=== PATIENT | female | born 1950 | race Caucasian/White ===

== ENCOUNTER → 2023-12-01 17:04 | Outpatient (REF) | payer MEDICARE, SELFPAY | LOC: PAVMRI 17:04 | PROVIDERS: ATTENDING PHYSICIAN Student in an Organized Health Care Education/Training Program; FAMILY PHYSICIAN Family Medicine | DX: S32.010A Wedge compression fracture of first lumbar vertebra, initial encounter for closed fracture (principal); M54.50 Low back pain, unspecified | CPT/HCPCS: 72148 ==

== ENCOUNTER → 2024-01-26 13:04 | Outpatient (REF) | payer MEDICARE, SELFPAY | LOC: RAD 13:04 | PROVIDERS: ATTENDING PHYSICIAN Internal Medicine Critical Care Medicine; FAMILY PHYSICIAN Family Medicine | DX: R91.8 Other nonspecific abnormal finding of lung field (principal) | CPT/HCPCS: 71250 ==

== ENCOUNTER → 2024-06-21 12:57 | Outpatient (REF) | payer MEDICARE, SELFPAY | LOC: RAD 12:57 | PROVIDERS: ATTENDING PHYSICIAN Family Medicine | DX: R20.0 Anesthesia of skin (principal); R20.2 Paresthesia of skin; R09.89 Other specified symptoms and signs involving the circulatory and respiratory systems | CPT/HCPCS: 93922; 93925 ==

== ENCOUNTER → 2024-07-20 12:24 | Outpatient (REF) | payer MEDICARE, SELFPAY | LOC: EMG 12:24 | PROVIDERS: ATTENDING PHYSICIAN Family Medicine | DX: R20.2 Paresthesia of skin (principal); G62.9 Polyneuropathy, unspecified | CPT/HCPCS: 95886; 95911 ==

== ENCOUNTER → 2024-08-27 11:30 | Outpatient (REF) | payer MEDICARE, SELFPAY | LOC: RAD 11:30 | PROVIDERS: ATTENDING PHYSICIAN Internal Medicine Rheumatology; FAMILY PHYSICIAN Family Medicine | DX: M06.00 Rheumatoid arthritis without rheumatoid factor, unspecified site (principal); M19.049 Primary osteoarthritis, unspecified hand | CPT/HCPCS: 73130 ==

== ENCOUNTER → 2025-02-01 13:47 | Outpatient (REF) | payer MEDICARE, SELFPAY | LOC: RAD 13:47 | PROVIDERS: ATTENDING PHYSICIAN Family Medicine; OTHER PHYSICIAN Internal Medicine Hematology & Oncology; OTHER PHYSICIAN Internal Medicine Rheumatology; REFERRING PHYSICIAN Obstetrics & Gynecology | DX: R22.1 Localized swelling, mass and lump, neck (principal) | CPT/HCPCS: 76536 ==

== ENCOUNTER → 2025-02-03 10:56 | Outpatient (REF) | payer MEDICARE, SELFPAY | LOC: HWRAD 10:56 | PROVIDERS: ATTENDING PHYSICIAN Internal Medicine Critical Care Medicine; FAMILY PHYSICIAN Family Medicine; OTHER PHYSICIAN Internal Medicine Hematology & Oncology; OTHER PHYSICIAN Internal Medicine Rheumatology; REFERRING PHYSICIAN Obstetrics & Gynecology | DX: R91.8 Other nonspecific abnormal finding of lung field (principal) | CPT/HCPCS: 71250 ==

== ENCOUNTER → 2025-03-09 14:19 | Outpatient (REF) | payer MEDICARE, SELFPAY | LOC: HWRAD 14:19 | PROVIDERS: ATTENDING PHYSICIAN Internal Medicine Rheumatology; FAMILY PHYSICIAN Family Medicine; REFERRING PHYSICIAN Orthopaedic Surgery | DX: M17.10 Unilateral primary osteoarthritis, unspecified knee (principal); M17.11 Unilateral primary osteoarthritis, right knee; M19.90 Unspecified osteoarthritis, unspecified site; M54.50 Low back pain, unspecified; M79.675 Pain in left toe(s) | CPT/HCPCS: 72110; 73564; 73630 ==

== ENCOUNTER → 2025-05-06 13:42 | Outpatient (REF) | payer MEDICARE, SELFPAY | LOC: PAVMRI 13:42 | PROVIDERS: ATTENDING PHYSICIAN Physician Assistant; FAMILY PHYSICIAN Family Medicine | DX: K86.2 Cyst of pancreas (principal) | CPT/HCPCS: 74183; A9575 ==

== ENCOUNTER → 2025-05-31 07:46 | Outpatient (REF) | payer MEDICARE, SELFPAY | LOC: RAD 07:46 | PROVIDERS: ATTENDING PHYSICIAN Internal Medicine Gastroenterology; FAMILY PHYSICIAN Family Medicine | DX: R10.11 Right upper quadrant pain (principal) | CPT/HCPCS: 78226; A9537 ==

== ENCOUNTER 2025-07-13 09:20 | Emergency (ER) | payer MEDICARE, SELFPAY ==
[2025-07-13 09:24] VITALS: BP 123/89
[2025-07-13 10:51] VITALS: BMI 21.8
--- NOTE | 2025-07-13 12:09 | ED.GENMED ---
History of Present Illness
General
Chief Complaint: Skin Problem
Source: patient
Exam Limitations: none
Time Seen by Provider: 07/13/25 10:31
Nursing documentation reviewed up to this point in time: agreed with
History of Present Illness
History of Present Illness:
75-year-old female with past medical history of CKD, GERD presenting to the emergency department today with concerns of a wound to her right lee. She claims that she sustained a laceration 2 weeks ago went to an urgent care this was Steri-Stripped
she noticed that there is been an ongoing wound to the area since then. Denies any pain or significant worsening redness.
Past History
Past History
ED Past Medical History: Cancer (Breast and skin cancer), GERD, Hypercholesterolemia, Psychiatric (Depression, ) and Other (Numbness, UTI, Pancreatic and Kidney cyst, Uterine Fibroids, Lyme disease, Shingles, Tha Thyroiditis)
ED Past Surgical History: Orthopedic (Tarsal tunnel, Carpal tunnel right) and Other (right breast lumpectomy)
Social History
Tobacco: Non-smoker
Alcohol: Daily (Wine 1 glass)
Personal:
Living: with family
Review of Systems
Review of Systems
Allergies reviewed?: Yes
All Other Systems: ROS reviewed and negative except as documented in HPI and ROS
Phy Exam
Physical Exam
Physical Exam:
GENERAL: Alert , in no apparent distress
EYE: pupils equal and reactive
NECK: Supple, no significant adenopathy.
ENT: o/p clr, mmm.
CARDIAC: Regular rate and rhythm .
LUNGS: Clear breath sounds bilaterally, no acute respiratory distress, no wheezes/rales/rhonchi
ABDOMEN: Soft, without focal tenderness, no r/g, no cvat
NEUROLOGICAL: Alert and oriented, no focal neuro deficits
SKIN: Right anterior lateral lee healing laceration with some area of granulation tissue and a small area of necrotic skin at the edge of the V-shaped laceration no significant redness warmth or tenderness no purulent drainage otherwise warm and
dry, skin intact.
MUSCULOSKELETAL: No edema, well perfused.
PSYCH: Normal and appropriate interaction.
Course
Vital Signs
Initial and Last Documented VS:
Initial Vital Signs
Temp Pulse Resp BP Pulse Ox
98.0 F 96 16 123/89 100
07/13/25 09:24 07/13/25 09:24 07/13/25 09:24 07/13/25 09:24 07/13/25 09:24
Last Documented Vital Signs
Temp Pulse Resp BP Pulse Ox
98.0 F 96 16 123/89 100
07/13/25 09:24 07/13/25 09:24 07/13/25 09:24 07/13/25 09:24 07/13/25 12:09
MDM/Problems Addressed
MDM/Problems Addressed:
75-year-old female presenting to the emergency department today with concerns of a wound to her right lower extremity. Here there is no signs of infection. This appears to be healing at a normal rate. She was advised for proper wound care and
given information for wound care follow-up. Return precautions given.
*Pulse Oximetry
SaO2: 100
Oxygen Mode of Delivery: Room air
Patient hypoxic: no (100)
*Critical Care Note
Total Time (30-74mins, 75-104mins- exclusive of procedures): Not Applicable
ED Attending Note
-
Portions of this chart may have been created with voice recognition software.� Occasional wrong word or��sound alike� substitutions may have occurred due to the inherent limitations of voice recognition software.
Discharge Plan
Departure
Patient Disposition: Home (Routine Discharge)
Date of Disposition: 07/13/25
Time of Disposition: 12:09
Patient with high blood pressure during this ER visit?: No
Condition: Good
Covid-19: Not Applicable
Discharge Problem:
Leg wound, right
Instructions: Wound Care (DC)
Prescriptions:
New
Santyl 250 unit/gram ointment
1 applic topical DAILY PRN (Reason: wound care) Qty: 90 0RF
No Action
bupropion HCl 100 MG tablet sustained-release 12 hr
100 mg PO BID
levothyroxine 50 MCG tablet
50 mcg PO DAILY
acetaminophen 650 mg Tablet Extended Release
650 mg PO Q8H PRN (Reason: pain)
hydroxychloroquine 200 mg Tablet
200 mg PO DAILY
cholecalciferol (vitamin D3) [Vitamin D3] 25 mcg (1,000 unit) Tablet,Chewable
25 mcg PO DAILY
quetiapine 150 mg Tablet
150 mg PO HS
Calcium 600 with Vitamin D3
1 tab PO DAILY
mupirocin 2 % ointment
1 applic intranasal BID Qty: 1 0RF
oxycodone 5 mg tablet
5 mg PO Q6H PRN (Reason: moderate-severe pain) Qty: 30 0RF
Rx Instructions:
1 tab for moderate pain, 2 if severe.
Dx total joint. Ongoing therapy.
dexamethasone 4 mg tablet
4 mg PO BID Qty: 7 0RF
Rx Instructions:
Start night of discharge and take twice daily until finished.
famotidine [Pepcid] 20 mg tablet
20 mg PO HS Qty: 30 0RF
Rx Instructions:
Take nightly while on post-op pain meds.
prochlorperazine maleate [Compazine] 5 mg tablet
5 mg PO TID PRN (Reason: nausea and vomiting) Qty: 20 0RF
Referrals:
Bobo Lr MD [Active, Plastic Surgery] - Follow up in 5-7 days
Luke Griffin DO [Family Provider, Family Practice]
Activity Restrictions/Additional Instructions:
You came to the emergency department today with concerns of ongoing wound to your right leg. Please use the prescribed medication and follow-up closely with the wound care doctor. Return for any worsening, new or concerning symptoms.
Interventions
Interventions:
*Risk Screen - Suicide Last Done: 07/13/25 10:47
*General Assessment Last Done: 07/13/25 10:47
*Neglect/Abuse Screening Last Done: 07/13/25 10:47
*ED- Fall Risk Assessment Last Done: 07/13/25 10:47
*ED COVID-19 Vaccine History Last Done: 07/13/25 10:47
*Nursing Disposition Last Done: 07/13/25 12:25
ED-Skin Assessment Last Done: 07/13/25 10:47
Discharge Date and Time
Discharge Date/Time: 07/13/25 12:44
Print Language: VIETNAMESE
== END 2025-07-13 12:44 | disposition home or self-care (01) ==
LOC: EMR 09:20
PROVIDERS: EMERGENCY PHYSICIAN Emergency Medicine; FAMILY PHYSICIAN Family Medicine
DX: S81.801A Unspecified open wound, right lower leg, initial encounter (principal); X58.XXXA Exposure to other specified factors, initial encounter; N18.9 Chronic kidney disease, unspecified; E78.00 Pure hypercholesterolemia, unspecified; Z85.828 Personal history of other malignant neoplasm of skin; Z85.3 Personal history of malignant neoplasm of breast
CPT/HCPCS: 99282

== ENCOUNTER → 2025-07-22 07:54 | Outpatient (REF) | payer MEDICARE, SELFPAY | LOC: WOUND 07:54 | PROVIDERS: ATTENDING PHYSICIAN Surgery; FAMILY PHYSICIAN Family Medicine | DX: L97.212 Non-pressure chronic ulcer of right calf with fat layer exposed (principal) | CPT/HCPCS: 99203 ==

== ENCOUNTER → 2025-07-29 10:06 | Outpatient (REF) | payer MEDICARE, SELFPAY | LOC: WOUND 10:06 | PROVIDERS: ATTENDING PHYSICIAN Surgery; FAMILY PHYSICIAN Family Medicine | DX: L97.212 Non-pressure chronic ulcer of right calf with fat layer exposed (principal) | CPT/HCPCS: 97597 ==

== ENCOUNTER → 2025-08-05 09:13 | Outpatient (REF) | payer MEDICARE, SELFPAY | LOC: WOUND 09:13 | PROVIDERS: ATTENDING PHYSICIAN Surgery; FAMILY PHYSICIAN Family Medicine | DX: L97.212 Non-pressure chronic ulcer of right calf with fat layer exposed (principal) | CPT/HCPCS: 11042 ==

== ENCOUNTER 2025-08-09 09:45 | Outpatient (REF) | payer MEDICARE, SELFPAY | END 2025-08-09 23:59 | disposition home or self-care (01) | LOC: WOUND 09:45 | PROVIDERS: ATTENDING PHYSICIAN Surgery; FAMILY PHYSICIAN Family Medicine | DX: L97.212 Non-pressure chronic ulcer of right calf with fat layer exposed (principal); L97.221 Non-pressure chronic ulcer of left calf limited to breakdown of skin | CPT/HCPCS: 11042; 99213 ==

== ENCOUNTER → 2025-08-16 10:13 | Outpatient (REF) | payer MEDICARE, SELFPAY | LOC: WOUND 10:13 | PROVIDERS: ATTENDING PHYSICIAN Surgery; FAMILY PHYSICIAN Family Medicine | DX: L97.212 Non-pressure chronic ulcer of right calf with fat layer exposed (principal); L97.221 Non-pressure chronic ulcer of left calf limited to breakdown of skin | CPT/HCPCS: 11042 ==

== ENCOUNTER → 2025-08-23 10:07 | Outpatient (REF) | payer MEDICARE, SELFPAY | LOC: WOUND 10:07 | PROVIDERS: ATTENDING PHYSICIAN Surgery; FAMILY PHYSICIAN Family Medicine | DX: L97.212 Non-pressure chronic ulcer of right calf with fat layer exposed (principal); L97.221 Non-pressure chronic ulcer of left calf limited to breakdown of skin | CPT/HCPCS: 11042 ==

== ENCOUNTER → 2025-08-30 13:46 | Outpatient (REF) | payer MEDICARE, SELFPAY | LOC: WOUND 13:46 | PROVIDERS: ATTENDING PHYSICIAN Surgery; FAMILY PHYSICIAN Family Medicine | DX: L97.212 Non-pressure chronic ulcer of right calf with fat layer exposed (principal); L97.221 Non-pressure chronic ulcer of left calf limited to breakdown of skin | CPT/HCPCS: 11042 ==

== ENCOUNTER 2025-09-07 11:58 | Emergency (ER) | payer MEDICARE, SELFPAY ==
--- NOTE | 2025-09-07 12:54 | ED.GENMED ---
History of Present Illness
<Rafita Carnes MD - Last Filed: 09/08/25 09:47>
General
Chief Complaint: Crisis Evaluation
Time Seen by Provider: 09/07/25 12:08
History of Present Illness
History of Present Illness:
Patient is a 75-year-old woman with history of bipolar disorder, CKD, thyroid disorder presenting to the emergency department for crisis evaluation. Patient's at bedside who states that her bipolar disorder is uncontrolled. She has been
manic. She is not sleeping. Patient states that she is having people tell her that she is going to go on TV and talk about Trump. She denies any thoughts of hurting herself or harming herself. She is having delusions. She denies any changes in
her medications. She is on medications for her bipolar disorder though she is unclear as to what. Patient's at bedside who states that this is too much for him to handle given how manic she is. Patient denies any medical complaints. No
palpitations chest pain difficulty breathing leg swelling diarrhea.
Past History
<Rafita Carnes MD - Last Filed: 09/08/25 09:47>
Past History
ED Past Medical History: Cancer (Breast and skin cancer), GERD, Hypercholesterolemia, Psychiatric (Depression, ) and Other (Numbness, UTI, Pancreatic and Kidney cyst, Uterine Fibroids, Lyme disease, Shingles, Tha Thyroiditis)
ED Past Surgical History: Orthopedic (Tarsal tunnel, Carpal tunnel right) and Other (right breast lumpectomy)
Social History
Tobacco: Non-smoker
Alcohol: Daily (Wine 1 glass)
Personal:
Living: with family
Phy Exam
<Rafita Carnes MD - Last Filed: 09/08/25 09:47>
Physical Exam
Physical Exam:
GENERAL: in no acute distress
HEENT: normocephalic, extraocular movements intact, moist oral mucosa
NECK: normal inspection
RESPIRATORY: no respiratory distress
CARDIOVASCULAR: regular rate and rhythm
ABDOMEN/: soft, non-distended, non-tender to palpation, no rebound or guarding
EXTREMITIES: non-tender, no edema/swelling
NEUROLOGIC: awake and alert, moves all extremities
Psych: Alert and oriented x 3, normal mood and affect, speech pressured, tangential thought process, not currently suicidal or homicidal, cooperative and communicating, no active auditory or visual hallucinations, poor insight
SKIN: warm
Course
<Rafita Carnes MD - Last Filed: 09/08/25 09:47>
Orders/Labs/Results
Orders:
Orders
09/07/25 12:03
1:1 Observation - Suicide/ Violent Behavior As Directed
Crisis Consult Urgent
Reason for Consult: psychiatric crisis
09/07/25 12:46
PSYCHIATRY CONSULT Urgent
Consulting Provider: Shane Feliciano
Was physician already notified: Yes
09/07/25 14:18
ECG [Electrocardiogram (*1)] Stat
Reason for Study: QTc Monitoring
09/07/25 14:20
Lorazepam [Ativan] 0.5 mg PO Q6HPRN PRN
09/07/25 14:23
B12 [Vitamin B12] Stat
CBC/With Diff [Complete Blood Count/With Diff] Stat
Comprehensive Metabolic Panel Stat
Folate Stat
TSH Reflex To Free T4 Stat
09/07/25 15:22
Urinalysis Reflex To Culture Stat
Date Specimen was Collected: 09/07/25
Time Specimen was Collected: 15:20
Abnormal Lab Results
09/07/25
14:23
Hgb 11.7 L g/dL
(12.0-16.0)
Hct 35.8 L %
(37.0-47.0)
MCHC 32.7 L g/dL
(33.0-37.0)
MPV 10.5 H fL
(7.4-10.4)
Absolute Lymphs (auto) 0.5 L 10^3/uL
(1.2-3.4)
Neutrophils % 78.2 H %
(42.2-75.2)
Lymphocytes % 9.8 L %
(20.5-51.1)
Monocytes % 10.3 H %
(1.7-9.3)
Sodium 134 L mmol/L
(135-145)
BUN 32 H mg/dl
(7-17)
Glucose 106 H mg/dl
(70-99)
Folate > 20.0 H ng/ml
(2.76-20)
09/07/25 14:23
09/07/25 14:23
Vital Signs
Initial and Last Documented VS:
Initial Vital Signs
Temp Pulse Resp BP Pulse Ox
98.1 F 74 16 154/90 100
09/07/25 18:25 09/07/25 18:25 09/07/25 18:25 09/07/25 18:25 09/07/25 18:25
Last Documented Vital Signs
Temp Pulse Resp BP Pulse Ox
98.1 F 74 16 154/90 100
09/07/25 18:25 09/07/25 18:25 09/07/25 18:25 09/07/25 18:25 09/07/25 18:25
<Tiffany Marquez, - Last Filed: 09/07/25 17:44>
Orders/Labs/Results
Orders:
Orders
09/07/25 12:03
1:1 Observation - Suicide/ Violent Behavior As Directed
Crisis Consult Urgent
Reason for Consult: psychiatric crisis
09/07/25 12:46
PSYCHIATRY CONSULT Urgent
Consulting Provider: Shane Feliciano
Was physician already notified: Yes
09/07/25 14:18
ECG [Electrocardiogram (*1)] Stat
Reason for Study: QTc Monitoring
09/07/25 14:20
Lorazepam [Ativan] 0.5 mg PO Q6HPRN PRN
09/07/25 14:23
B12 [Vitamin B12] Stat
CBC/With Diff [Complete Blood Count/With Diff] Stat
Comprehensive Metabolic Panel Stat
Folate Stat
TSH Reflex To Free T4 Stat
09/07/25 15:22
Urinalysis Reflex To Culture Stat
Date Specimen was Collected: 09/07/25
Time Specimen was Collected: 15:20
Abnormal Lab Results
09/07/25
14:23
Hgb 11.7 L g/dL
(12.0-16.0)
Hct 35.8 L %
(37.0-47.0)
MCHC 32.7 L g/dL
(33.0-37.0)
MPV 10.5 H fL
(7.4-10.4)
Absolute Lymphs (auto) 0.5 L 10^3/uL
(1.2-3.4)
Neutrophils % 78.2 H %
(42.2-75.2)
Lymphocytes % 9.8 L %
(20.5-51.1)
Monocytes % 10.3 H %
(1.7-9.3)
Sodium 134 L mmol/L
(135-145)
BUN 32 H mg/dl
(7-17)
Glucose 106 H mg/dl
(70-99)
Folate > 20.0 H ng/ml
(2.76-20)
09/07/25 14:23
09/07/25 14:23
Vital Signs
Initial and Last Documented VS:
Initial Vital Signs
Temp Pulse Resp BP Pulse Ox
98.1 F 74 16 154/90 100
09/07/25 18:25 11 18:25 09/07/25 18:25 09/07/25 18:25 09/07/25 18:25
Last Documented Vital Signs
Temp Pulse Resp BP Pulse Ox
98.1 F 74 16 154/90 100
09/07/25 18:25 09/07/25 18:25 09/07/25 18:25 09/07/25 18:25 09/07/25 18:25
<Rafita Carnes MD - Last Filed: 09/08/25 09:47>
MDM/Problems Addressed
Differential Diagnosis Includes:
Patient is a 75-year-old woman history of bipolar disorder presenting to the emergency department for crisis evaluation. During my evaluation patient has no medical complaints. She does have pressured speech with delusions and is not sleeping and
has been more agitated at home per patient's . Crisis evaluated patient and stated that she will be difficult to place given patient's comorbidities. Will have psychiatry see her for further evaluation and recommendations.
Discussed with psych who recommended blood work as well as CT scan given patient has not had a manic episode thus far. Patient signed out oncoming attending pending results and then rediscussion with psychiatry.
<Rafita Carnes MD - Last Filed: 09/08/25 09:47>
*Pulse Oximetry
Patient hypoxic: no
*Critical Care Note
Total Time (30-74mins, 75-104mins- exclusive of procedures): Not Applicable
<Tiffany Marquez DO - Last Filed: 09/07/25 17:44>
Update Note
Update Note:
1623: Patient care assumed by me at end of attending shift pending labs, CT head and dispo planning. I reviewed full patient presentation with Dr. Feliciano, psychiatry. She was able to coordinate for patient to be transferred to [place] for
inpatient psychiatric care. They do not require CT head, this has been canceled. Awaiting transport set up
1743: Patient is unwilling to sign 201. There are not grounds for 302. Patient would like to be discharged home.
ED Attending Note
<Rafita Carnes MD - Last Filed: 09/08/25 09:47>
-
Portions of this chart may have been created with voice recognition software.� Occasional wrong word or��sound alike� substitutions may have occurred due to the inherent limitations of voice recognition software.
Discharge Plan
Departure
Patient Disposition: Psych Facility
Date of Disposition: 09/07/25
Time of Disposition: 17:13
Patient Status:: Crisis
Patient with high blood pressure during this ER visit?: No
Discharge Problem:
Bipolar disorder
Prescriptions:
No Action
bupropion HCl 100 MG tablet sustained-release 12 hr
100 mg PO BID
levothyroxine 50 MCG tablet
50 mcg PO DAILY
acetaminophen 650 mg Tablet Extended Release
650 mg PO Q8H PRN (Reason: pain)
hydroxychloroquine 200 mg Tablet
200 mg PO DAILY
cholecalciferol (vitamin D3) [Vitamin D3] 25 mcg (1,000 unit) Tablet,Chewable
25 mcg PO DAILY
quetiapine 150 mg Tablet
150 mg PO HS
Calcium 600 with Vitamin D3
1 tab PO DAILY
mupirocin 2 % ointment
1 applic intranasal BID Qty: 1 0RF
oxycodone 5 mg tablet
5 mg PO Q6H PRN (Reason: moderate-severe pain) Qty: 30 0RF
Rx Instructions:
1 tab for moderate pain, 2 if severe.
Dx total joint. Ongoing therapy.
dexamethasone 4 mg tablet
4 mg PO BID Qty: 7 0RF
Rx Instructions:
Start night of discharge and take twice daily until finished.
famotidine [Pepcid] 20 mg tablet
20 mg PO HS Qty: 30 0RF
Rx Instructions:
Take nightly while on post-op pain meds.
prochlorperazine maleate [Compazine] 5 mg tablet
5 mg PO TID PRN (Reason: nausea and vomiting) Qty: 20 0RF
Santyl 250 unit/gram ointment
1 applic topical DAILY PRN (Reason: wound care) Qty: 90 0RF
Referrals:
Luke Griffin DO [Family Provider, Family Practice]
Interventions
Interventions:
*Risk Screen - Suicide Last Done: 09/07/25 12:01
*General Assessment Last Done: 09/07/25 19:54
*Neglect/Abuse Screening Last Done: 09/07/25 17:25
*ED COVID-19 Vaccine History Last Done: 09/07/25 19:52
*ED Influenza Vaccine History Last Done: 09/07/25 19:52
*Nursing Disposition Last Done: 09/07/25 22:02
ED-Psychological Assessment Last Done: 09/07/25 17:26
Discharge Date and Time
Discharge Date/Time: 09/07/25 22:03
Print Language: KYRGYZ
--- NOTE | 2025-09-07 14:24 | CON.MD ---
Addendum entered and electronically signed by Shane Feliciano MD 09/07/25 15:31:
normal ecg. creatinine is actually normal. bun somewhat elevated (30) other labs pending.
Addendum entered and electronically signed by Shane Feliciano MD 09/07/25 15:29:
hydroxychloroquine was prescribed for rheumatoid arthritis . pilocarpine for sjogren's she is not taking the latter at this time.
Original Note:
Consultation - Medical
-
patient seen chart reviewed. spoke with dr hodge. this consult is being done today september 07 2025. the patient was accompanied by her h. the patient is a 75 year old woman who has hx of bipolar disorder. her illness began after the births of her
two children one of whom is . over the years she has had mostly periods of depression but occasional excursions it sounds like into at least hypomania with difficulty sleeping, racing thoughts, excessive talking. adds 'never'
excessive spending. for the most part she has been rx antidepressants and seroquel. of note the patient is a poor historian and was preoccupied with delusions and paranoia insisting she had been informed that she needs to go on tv to talk about
kristine guillaume (her choice for president) and is sure she saw 'black people' outside her door. she appeared frightened by these factors. notes that she was in the php at [facility] and that for the most part her chief complaint was not
sleeping. it is his feeling that her prescribers have just kept 'throwing (s---) at the wall' meaning meds at her hoping something will work for her but so far nothing has. she had been taking prozac 60 mg dec to 40 then stopped, wellbutrin
increased a couple of weeks ago to 300 mg and remeron 15 mg q hs. he feels the increase in remeron seems to have led to her decomp. she had been on 450 of seroquel dec to 300 mg recently. currently she is sleeping poorly. she is not eating much.
she is hyperverbal easily distracted and talks constantly about this message she got about needing to essentially stump for trump on the weekend. she denies suicidal thoughts. she has seen and heard people who are not there. she expressed no
thoughts of hurting others. family, frustrated w her care so far, have an appt with dr olivia bryan for oct 07.
past psych hx patient was hospitalized twice after the births of her kids. she was hosp three times for mood disorder. most recently at [facility] see above. had been seen at [facility] for meds. had seen a prescriber at [facility] relatively recently
and was referred to see a neurologist . according to that note patient presenting problem was decline in cognitive function and from my read of the mental status on aug 01 2025 she did not seem manic. patient had taken lithium years ago dc'ed bc
kidney toxicity
allergies lithium (toxic sulfa pineapple
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
hx uti pancreatic and kkidney cysts. takes hydroxychloroquine (need to ask patient and h why ) synthroid pantoprazole pilocarpine (glaucoma?) prolia hx shingles
family hx son of drug od as did niece gm and aunt depressed brother dementia
social resides w h. has one son remaining. 5 year old granddaughter. 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
mse alert ox3 tried to be cooperative but perseverated constantly on themes as listed above. speech rapid and pressured. thought process circular tangential thought content delusional and paranoid irritable mood affect labile denies si sees and
hears things. ideas of reference insight judgment lacking
dx bipolar manic w psychotic fx
plan rule out medical illness. cmp cbc b12 folate tsh reflect to t4 ua reflex to culture ecg cat brain . this is likely bipolar anitha precripitated by antidepressants and reduced seroquel . i would recommend [facility] will see what
labs show and proceed from there. ativan prn anxiety agitation
[2025-09-07 14:40] LABS: Hematocrit 35.8 % (37.0-47.0); Hemoglobin 11.7 g/dL (12.0-16.0); Mean Corp Hgb Conc. 32.7 g/dL (33.0-37.0); Mean Corpuscular Volume 83.4 fL (81.0-99.0); Nucleated Red Blood Cells % 0 %; Platelet Count 245 10^3/uL (130-400); Red Cell Dist. Width 14.0 % (11.5-14.5)
[2025-09-07] MEDS: ATIVAN 0.5 MG PO (14:41)
[2025-09-07 14:58] LABS: ALT (SGPT) 32 U/L (0-35); AST (SGOT) 32 U/L (14-36); Albumin 4.5 g/dl (3.5-5.0); Alkaline Phosphatase 65 U/L (38-126); Blood Urea Nitrogen 32 mg/dl (7-17); Calcium 9.3 mg/dl (8.4-10.2); Carbon Dioxide 27 mmol/L (22-30); Chloride 104 mmol/L (98-107); Glucose 106 mg/dl (70-99); Potassium 4.3 mmol/L (3.5-5.1); Sodium 134 mmol/L (135-145); Total Protein 7.4 g/dl (6.3-8.2); eGFR 59.12
[2025-09-07 15:42] LABS: Urine Character Clear (Clear)
[2025-09-07 16:07] LABS: Folate > 20.0 ng/ml (2.76-20); Vitamin B12 368 pg/ml (239-931)
[2025-09-07 18:25] VITALS: BP 154/90
== END 2025-09-07 22:03 ==
LOC: EMR 11:58
PROVIDERS: CONSULT PHYSICIAN Psychiatry & Neurology Psychiatry; EMERGENCY PHYSICIAN Student in an Organized Health Care Education/Training Program; FAMILY PHYSICIAN Family Medicine
DX: F31.2 Bipolar disorder, current episode manic severe with psychotic features (principal); E78.00 Pure hypercholesterolemia, unspecified; N18.9 Chronic kidney disease, unspecified; E06.3 Autoimmune thyroiditis; K21.9 Gastro-esophageal reflux disease without esophagitis; M81.0 Age-related osteoporosis without current pathological fracture; Z85.3 Personal history of malignant neoplasm of breast; Z85.828 Personal history of other malignant neoplasm of skin
CPT/HCPCS: 99285; 80053; 81003; 82607; 82746; 84443; 85025; 93005

== ENCOUNTER → 2025-09-30 13:04 | Outpatient (REF) | payer MEDICARE, SELFPAY | LOC: HWRAD 13:04 | PROVIDERS: ATTENDING PHYSICIAN Internal Medicine Rheumatology; FAMILY PHYSICIAN Family Medicine | DX: M81.0 Age-related osteoporosis without current pathological fracture (principal) | CPT/HCPCS: 77080 ==